=== PATIENT | female | born 1960 | race Caucasian/White ===

== ENCOUNTER 2021-07-02 21:57 | Inpatient (IN) ==
[2021-07-03] MEDS ORDERED: Naloxone 0.4 MG/ML INJ IVP PRN (01:16)
[2021-07-03] MEDS ORDERED: *HR* Promethazine 25 MG/ML VIAL IM PRN (01:16)
[2021-07-03] MEDS ORDERED: *HR* HYDROcodone/Acet 5/325 mg TABLET PO PRN (01:16)
[2021-07-03] MEDS ORDERED: Melatonin 3 MG TABLET PO PRN (01:16)
[2021-07-03] MEDS ORDERED: *HR* Heparin 5,000 UNIT/ML VIAL IVP PRN ×2 (01:18)
[2021-07-03] MEDS ORDERED: Perflutren Lipid Microsphere 1.3 ML in 0.9 % Sodium Chloride 8.7 ML IVP PRN ×2 (01:19→09:25)
[2021-07-03] MEDS ORDERED: D5% in Water 1,000 ML IVC PRN (01:20)
[2021-07-03] MEDS ORDERED: Dextrose Gel 15 GM/37.5 ML TUBE PO PRN ×2 (01:20)
[2021-07-03] MEDS ORDERED: *HR* Dextrose 50 % in Water (Syg) 50 ML SYRINGE IVP PRN (01:20)
[2021-07-03 02:10] LABS: Basophils % 0.4 %; Eosinophils # 0.1 K/mcL (0.0-0.6); Eosinophils % 1.3 %; Hematocrit 48.1 % (35.3-44.9); Hemoglobin 15.5 g/dL (11.5-15.4); Immature Granulocytes % 0.4 % (0-4); Lymphocytes # 2.5 K/mcL (0.6-4.6); Lymphocytes % 27.5 %; Mean Corpuscular HGB Conc 32.2 g/dL (31.6-35.5); Mean Corpuscular Hemoglobin 29.5 pg (28.0-33.3); Mean Corpuscular Volume 91.6 fL (83.0-100.0); Mean Platelet Volume 11.4 fL (9.4-12.4); Monocytes # 0.5 K/mcL (0.0-1.3); Monocytes % 5.5 %; Neutrophils # 5.9 K/mcL (1.6-8.9); Platelet Count 402 K/mcL (140-400); Red Blood Count 5.25 M/mcL (3.82-4.97); Red Cell Distribution Width 13.1 % (11.5-14.5); Segmented Neutrophils % 64.9 %; White Blood Count 9.2 K/mcL (4.3-11.1)
[2021-07-03 02:18] LABS: Heparin anti-factor XA UFH 0.1 IU/mL (0.30-0.70)
[2021-07-03 02:19] LABS: INR 1.2; Prothrombin Time 13.5 Seconds (9.4-12.1)
[2021-07-03] MEDS: Heparin 25,000 UNIT/250 ML 25,000 UNIT/250 ML IV.SOLN IVC SCH (02:19)
[2021-07-03 02:21] LABS: Activated Partial Thrombo Time 33.7 Seconds (26.0-36.0)
[2021-07-03] MEDS: carvediloL 6.25 MG TABLET PO SCH ×2 (02:28→04:55)
[2021-07-03] MEDS: Acetaminophen 325 MG TABLET PO PRN (02:30)
[2021-07-03 02:40] LABS: Alanine Aminotransferase 15 Units/L (7-52); Albumin 3.5 g/dL (3.5-5.7); Albumin/Globulin Ratio 1.1 (1.1-2.2); Alkaline Phosphatase 86 Units/L (34-104); Aspartate Amino Transferase 25 Units/L (13-39); BUN/Creatinine Ratio 28 (6-26); Bilirubin,Total 0.5 mg/dL (0.3-1.0); Blood Urea Nitrogen 18 mg/dL (8-23); Calcium 9.1 mg/dL (8.6-10.3); Carbon Dioxide 29 mEq/L (23-29); Chloride 100 mEq/L (98-107); Chol/HDL Ratio 3.5 (0-4.9); Cholesterol 139 mg/dL (< 200); Globulin 3.3 g/dL (2.4-3.5); Glucose 181 mg/dL (70-105); HDL Cholesterol 40 mg/dL (40-59); LDL Cholesterol,Calculated 81 mg/dL (< 100); Magnesium 1.7 mg/dL (1.6-2.6); Osmolality,Calculated 292 (280-300); Phosphorous 2.6 mg/dL (2.7-4.5); Potassium 3.3 mEq/L (3.5-5.1); Sodium 138 mEq/L (136-145); Total Protein 6.8 g/dL (6.4-8.9); Triglycerides 92 mg/dL (< 150); eGFR For African Americans > 60 (> 60); eGFR For Non-African Americans > 60 (> 60)
[2021-07-03] MEDS: Ipratropium 1 PUFF INHALER IH SCH ×4 (04:21→19:55)
[2021-07-03 05:31] LABS: Troponin I 1.29 ng/mL (< 0.04)
[2021-07-03] MEDS: Budesonide/Formoterol 160/4.5 1 PUFF INH IH SCH ×2 (08:24→19:56)
[2021-07-03 08:40] LABS: Estimated Average Glucose 134 mg/dl; Hemoglobin A1C 6.3 %
[2021-07-03] MEDS: Multivit/Ca/Min/Fe/FA 1 TAB TABLET PO SCH (08:59)
[2021-07-03] MEDS: carvediloL 25 MG TABLET PO SCH ×2 (08:59→17:01)
[2021-07-03] MEDS: lisinopriL 10 MG TABLET PO SCH (08:59)
[2021-07-03] MEDS: Chlorhexidine Rinse 15 ML MOUTHWASH MM SCH ×2 (08:59→19:45)
[2021-07-03] MEDS: predniSONE 20 MG TABLET PO SCH (08:59)
[2021-07-03] MEDS: Aspirin 81 MG TAB.CHEW PO SCH (08:59)
[2021-07-03] MEDS ORDERED: lisinopriL 20 MG TABLET PO SCH (09:00)
[2021-07-03] MEDS ORDERED: ISOVUE-370 200 ML INFUS..BTL ONE (12:38)
[2021-07-03] MEDS ORDERED: *HR* Heparin 10,000 UNIT/10 ML VIAL ONE (12:38)
[2021-07-03] MEDS ORDERED: Heparin 1,000 UNITS/500 mL 500 ML ONE (12:38)
[2021-07-03] MEDS ORDERED: Nitroglycerin 1,000 MCG/5 ML VIAL IV ONE (12:38)
[2021-07-03] MEDS ORDERED: 0.9 % Sodium Chloride 1,000 ML ONE ×2 (12:38→12:48)
[2021-07-03] MEDS ORDERED: *HR* FentaNYL (PF) 100 MCG/2 ML VIAL ONE (12:47)
[2021-07-03] MEDS ORDERED: *HR* Midazolam HCl 2 MG/2 ML VIAL ONE (12:48)
[2021-07-03] MEDS ORDERED: Isovue-370 500 ML BOTTLE IVP ONE (18:50)
[2021-07-04] MEDS: Ipratropium 1 PUFF INHALER IH SCH ×4 (03:50→20:45)
[2021-07-04] MEDS: Heparin 25,000 UNIT/250 ML 25,000 UNIT/250 ML IV.SOLN IVC SCH ×2 (07:08→16:48)
[2021-07-04] MEDS: Chlorhexidine Rinse 15 ML MOUTHWASH MM SCH ×2 (08:15→20:24)
[2021-07-04] MEDS: predniSONE 20 MG TABLET PO SCH (08:16)
[2021-07-04] MEDS: Multivit/Ca/Min/Fe/FA 1 TAB TABLET PO SCH (08:16)
[2021-07-04] MEDS: Aspirin 81 MG TAB.CHEW PO SCH (08:16)
[2021-07-04] MEDS: lisinopriL 10 MG TABLET PO SCH (08:16)
[2021-07-04] MEDS: carvediloL 25 MG TABLET PO SCH ×2 (08:16→16:43)
[2021-07-04] MEDS: Budesonide/Formoterol 160/4.5 1 PUFF INH IH SCH ×2 (09:45→20:45)
[2021-07-04] MEDS: Acetaminophen 325 MG TABLET PO PRN (10:28)
[2021-07-04 15:15] VITALS: TEMP 97.8
[2021-07-04] MEDS: Nicotine 21 MG PATCH.TD24 TD SCH (17:58)
[2021-07-04 18:48] VITALS: O2SAT 94
[2021-07-05] MEDS: Ipratropium 1 PUFF INHALER IH SCH ×2 (03:39→10:20)
[2021-07-05 03:40] LABS: Hematocrit 36.2 % (35.3-44.9); Mean Corpuscular HGB Conc 32.9 g/dL (31.6-35.5); Mean Corpuscular Hemoglobin 30.3 pg (28.0-33.3); Mean Corpuscular Volume 92.1 fL (83.0-100.0); Mean Platelet Volume 11.8 fL (9.4-12.4); Platelet Count 354 K/mcL (140-400); Red Blood Count 3.93 M/mcL (3.82-4.97); Red Cell Distribution Width 13.1 % (11.5-14.5); White Blood Count 9.5 K/mcL (4.3-11.1)
[2021-07-05 03:56] LABS: BUN/Creatinine Ratio 43 (6-26); Blood Urea Nitrogen 25 mg/dL (8-23); Calcium 8.6 mg/dL (8.6-10.3); Carbon Dioxide 24 mEq/L (23-29); Chloride 107 mEq/L (98-107); Glucose 159 mg/dL (70-105); Osmolality,Calculated 294 (280-300); Potassium 3.6 mEq/L (3.5-5.1); Sodium 138 mEq/L (136-145); eGFR For African Americans > 60 (> 60); eGFR For Non-African Americans > 60 (> 60)
[2021-07-05 04:01] LABS: Hemoglobin 11.9 g/dL (11.5-15.4)
[2021-07-05 06:52] VITALS: BP 157/94; PULSE 71
[2021-07-05] MEDS: carvediloL 25 MG TABLET PO SCH (07:39)
[2021-07-05] MEDS: Multivit/Ca/Min/Fe/FA 1 TAB TABLET PO SCH (07:39)
[2021-07-05] MEDS: predniSONE 20 MG TABLET PO SCH (07:39)
[2021-07-05] MEDS: lisinopriL 10 MG TABLET PO SCH (07:39)
[2021-07-05] MEDS: Chlorhexidine Rinse 15 ML MOUTHWASH MM SCH (07:39)
[2021-07-05] MEDS: Nicotine 21 MG PATCH.TD24 TD SCH (07:39)
[2021-07-05] MEDS: Aspirin 81 MG TAB.CHEW PO SCH (07:39)
[2021-07-05] MEDS: Budesonide/Formoterol 160/4.5 1 PUFF INH IH SCH (10:21)
== END 2021-07-05 10:50 | disposition home or self-care (01) | DRG 281 ==
LOC: 3BNU → SUATTDRO 23:55
PROVIDERS: ADMIT Internal Medicine; ATTEND Registered Nurse

== ENCOUNTER 2021-08-13 06:57 | Inpatient (IN) ==
[2021-08-13] MEDS ORDERED: Famotidine 20 MG/2 ML VIAL ONE (07:00)
[2021-08-13] MEDS ORDERED: *HR* Rocuronium Bromide 50 MG/5 ML VIAL ONE ×2 (07:00→10:16)
[2021-08-13] MEDS ORDERED: *HR* Magnesium Sulfate 1 GM/2 ML VIAL ONE (07:00)
[2021-08-13] MEDS ORDERED: Tranexamic Acid 1,000 MG/10 ML VIAL ONE (07:01)
[2021-08-13] MEDS ORDERED: Lidocaine 2% Syringe 100 MG/5 ML ONE (07:01)
[2021-08-13] MEDS ORDERED: *HR* Midazolam HCl 5 MG/5 ML VIAL IVP ONE (07:01)
[2021-08-13] MEDS ORDERED: *HR* Propofol 200 MG/20 ML VIAL IVP ONE (07:01)
[2021-08-13] MEDS ORDERED: *HR* FentaNYL (PF) 1,000 MCG/20 ML VIAL ONE (07:01)
[2021-08-13] MEDS ORDERED: *HR* Vasopressin 20 UNIT/ML VIAL ONE (07:10)
[2021-08-13] MEDS ORDERED: CeFAZolin Syr 2,000MG/20 ML 2,000 MG/20 ML SYRINGE IVPB ONE (07:24)
[2021-08-13] MEDS ORDERED: Chlorhexidine Rinse 15 ML MOUTHWASH MM ONE (07:28)
[2021-08-13] MEDS ORDERED: Ringers Solution, Lactated 1,000 ML IVC SCH (07:30)
[2021-08-13] MEDS ORDERED: Cardioplegic Solution w/ Potassium 5 MEQ TH ONE ×3 (08:00)
[2021-08-13] MEDS ORDERED: Cardioplegic Solution w/ Potassium 20 MEQ TH ONE (08:00)
[2021-08-13] MEDS ORDERED: Heparin 15,000 UNIT in 0.9 % Sodium Chloride 500 ML IV ONE (08:00)
[2021-08-13] MEDS ORDERED: Norepinephrine 4 MG in 0.9 % Sodium Chloride 250 ML IVC PRN (08:00)
[2021-08-13] MEDS: Aspirin 81 MG TAB.CHEW PO SCH (08:09)
[2021-08-13 08:56] LABS: ABG Base Excess 0 mEq/L (-2 to 3); ABG Chloride 105 mEq/L (98-107); ABG Glucose 91 mg/dL (60-95); ABG HCO3 26 mEq/L (21-27); ABG Ionized Calcium 1.19 mmol/L (1.15-1.35); ABG Oxygen Saturation 100 % (95-98); ABG PCO2 45 mmHg (35-45); ABG PH 7.36 pH Units (7.32-7.45); ABG PO2 504 mmHg (85-104); ABG TCO2 27 mEq/L (20-26)
[2021-08-13 10:04] LABS: ABG Base Excess 0 mEq/L (-2 to 3); ABG Chloride 103 mEq/L (98-107); ABG Glucose 130 mg/dL (60-95); ABG HCO3 27 mEq/L (21-27); ABG Ionized Calcium 1.18 mmol/L (1.15-1.35); ABG Oxygen Saturation 100 % (95-98); ABG PCO2 51 mmHg (35-45); ABG PH 7.33 pH Units (7.32-7.45); ABG PO2 287 mmHg (85-104); ABG TCO2 28 mEq/L (20-26)
[2021-08-13 10:34] LABS: ABG Base Excess 3 mEq/L (-2 to 3); ABG Chloride 100 mEq/L (98-107); ABG Glucose 220 mg/dL (60-95); ABG HCO3 25 mEq/L (21-27); ABG Oxygen Saturation 100 % (95-98); ABG PCO2 27 mmHg (35-45); ABG PH 7.58 pH Units (7.32-7.45); ABG PO2 600 mmHg (85-104); ABG TCO2 26 mEq/L (20-26)
[2021-08-13 10:59] LABS: ABG Base Excess 2 mEq/L (-2 to 3); ABG Chloride 99 mEq/L (98-107); ABG Glucose 159 mg/dL (60-95); ABG HCO3 27 mEq/L (21-27); ABG Ionized Calcium 0.98 mmol/L (1.15-1.35); ABG Oxygen Saturation 100 % (95-98); ABG PCO2 39 mmHg (35-45); ABG PH 7.44 pH Units (7.32-7.45); ABG PO2 529 mmHg (85-104); ABG TCO2 28 mEq/L (20-26)
[2021-08-13 11:24] LABS: ABG Base Excess 2 mEq/L (-2 to 3); ABG Chloride 102 mEq/L (98-107); ABG Glucose 101 mg/dL (60-95); ABG HCO3 28 mEq/L (21-27); ABG Ionized Calcium 1.29 mmol/L (1.15-1.35); ABG Oxygen Saturation 100 % (95-98); ABG PCO2 50 mmHg (35-45); ABG PH 7.35 pH Units (7.32-7.45); ABG PO2 581 mmHg (85-104); ABG TCO2 29 mEq/L (20-26)
[2021-08-13] MEDS ORDERED: Protamine Sulfate 50 MG/5 ML VIAL IVP ONE (11:27)
[2021-08-13] MEDS ORDERED: Albumin Human 5% 12.5 GM/250 ML IV.SOLN ONE ×2 (11:41→12:59)
[2021-08-13] MEDS ORDERED: niCARdipine 40 MG/200 ML MLS IVC ONE (11:57)
[2021-08-13 12:01] LABS: ABG Base Excess 0 mEq/L (-2 to 3); ABG Chloride 103 mEq/L (98-107); ABG Glucose 54 mg/dL (60-95); ABG HCO3 26 mEq/L (21-27); ABG Ionized Calcium 1.19 mmol/L (1.15-1.35); ABG Oxygen Saturation 100 % (95-98); ABG PCO2 49 mmHg (35-45); ABG PH 7.34 pH Units (7.32-7.45); ABG PO2 382 mmHg (85-104); ABG TCO2 28 mEq/L (20-26)
[2021-08-13] MEDS ORDERED: *HR* Dextrose 50 % in Water (Syg) 50 ML SYRINGE ONE (12:02)
[2021-08-13] MEDS ORDERED: Lidocaine 2% Syringe 100 MG/5 ML IVP ONE (12:19)
[2021-08-13] MEDS ORDERED: *HR* Phenylephrine 10 MG/ML VIAL IVC ONE (12:19)
[2021-08-13] MEDS ORDERED: Albumin Human 25% 25 GM/100 ML IV.SOLN IVPB ONE (12:19)
[2021-08-13] MEDS ORDERED: *HR* Heparin 10,000 UNIT/10 ML VIAL IR ONE (12:19)
[2021-08-13] MEDS ORDERED: Acetaminophen 325 MG TABLET PO PRN (12:22)
[2021-08-13] MEDS ORDERED: Acetaminophen 650 MG RECTAL SUPP RC PRN (12:22)
[2021-08-13] MEDS ORDERED: Insulin Regular, Human 100 UNIT/ML IV PRN (12:22)
[2021-08-13] MEDS ORDERED: Potassium Chloride 40 MEQ/200 ML BAG IVPB PRN (12:22)
[2021-08-13] MEDS ORDERED: Ondansetron 4 MG/2 ML VIAL IVP PRN (12:22)
[2021-08-13] MEDS ORDERED: Calcium Gluconate 1gm/50mL 1 GM/50 ML BAG IVPB PRN (12:22)
[2021-08-13] MEDS ORDERED: *HR* Dextrose 50 % in Water (Syg) 50 ML SYRINGE IVP PRN (12:22)
[2021-08-13] MEDS ORDERED: Naloxone 0.4 MG/ML INJ IVP PRN (12:22)
[2021-08-13] MEDS: Albumin Human 5% 12.5 GM/250 ML IV.SOLN IVPB PRN ×2 (13:00→15:30)
[2021-08-13 13:16] LABS: ABG Base Excess 0 mEq/L (-2 to 3); ABG HCO3 27 mEq/L (21-27); ABG Oxygen Saturation 100 % (95-98); ABG PCO2 57 mmHg (35-45); ABG PH 7.29 pH Units (7.32-7.45); ABG PO2 261 mmHg (85-104); ABG TCO2 29 mEq/L (20-26); Blood Gas Modality ASSIST CONTROL; Blood Gas VT 450 cc
[2021-08-13 13:22] LABS: Eosinophils % 1.3 %; Red Cell Distribution Width 13.5 % (11.5-14.5)
[2021-08-13 13:24] LABS: Basophils % 0.2 %; Eosinophils # 0.2 K/mcL (0.0-0.6); Hematocrit 37.2 % (35.3-44.9); Hemoglobin 12.3 g/dL (11.5-15.4); INR 1.4; Immature Granulocytes % 0.6 % (0-4); Immature Platelets 11.6 % (1.1-6.1); Lymphocytes # 2.2 K/mcL (0.6-4.6); Lymphocytes % 12.9 %; Mean Corpuscular HGB Conc 33.1 g/dL (31.6-35.5); Mean Corpuscular Hemoglobin 30.9 pg (28.0-33.3); Mean Corpuscular Volume 93.5 fL (83.0-100.0); Mean Platelet Volume 11.9 fL (9.4-12.4); Monocytes % 4.9 %; Neutrophils # 13.8 K/mcL (1.6-8.9); Platelet Count 102 K/mcL (140-400); Red Blood Count 3.98 M/mcL (3.82-4.97); Segmented Neutrophils % 80.1 %; White Blood Count 17.2 K/mcL (4.3-11.1)
[2021-08-13 13:25] LABS: Monocytes # 0.8 K/mcL (0.0-1.3)
[2021-08-13 13:27] LABS: Activated Partial Thrombo Time 33.9 Seconds (26.0-36.0)
[2021-08-13 13:46] LABS: BUN/Creatinine Ratio 26 (6-26); Blood Urea Nitrogen 18 mg/dL (8-23); Calcium 7.8 mg/dL (8.6-10.3); Carbon Dioxide 26 mEq/L (23-29); Chloride 112 mEq/L (98-107); Glucose 95 mg/dL (70-105); Magnesium 3.2 mg/dL (1.6-2.6); Osmolality,Calculated 288 (280-300); Potassium 3.9 mEq/L (3.5-5.1); Sodium 138 mEq/L (136-145); eGFR For African Americans > 60 (> 60); eGFR For Non-African Americans > 60 (> 60)
[2021-08-13] MEDS: *HR* OxyCODONE/APAP 5/325 TABLET PO PRN ×2 (13:46→17:49)
[2021-08-13] MEDS: *HR* FentaNYL (PF) 100 MCG/2 ML VIAL IVP PRN ×3 (13:47→20:10)
[2021-08-13] MEDS: 0.9 % Sodium Chloride w KCl 20 MEQ/1,000 ML MLS IVC SCH (13:49)
[2021-08-13] MEDS: CeFAZolin 2 GM/120 ML BAG IVPB SCH ×2 (16:44→23:49)
[2021-08-13] MEDS: Norepinephrine 4 MG/254 ML IV.SOLN IVC SCH ×3 (16:45→23:50)
[2021-08-13] MEDS: niCARdipine 20 MG/200 ML MLS IVC SCH ×4 (16:45→23:50)
[2021-08-13 16:50] LABS: ABG Base Excess 0 mEq/L (-2 to 3); ABG HCO3 28 mEq/L (21-27); ABG Oxygen Saturation 94 % (95-98); ABG PCO2 58 mmHg (35-45); ABG PH 7.29 pH Units (7.32-7.45); ABG PO2 78 mmHg (85-104); ABG TCO2 30 mEq/L (20-26); Blood Gas Modality ASSIST CONTROL; Blood Gas VT 450 cc
[2021-08-13] MEDS: Ketorolac 30 MG/ML VIAL IVP SCH ×2 (17:03→23:49)
[2021-08-13] MEDS: Metoclopramide 10 MG/2 ML VIAL IVP SCH ×2 (17:04→23:49)
[2021-08-13 18:53] LABS: ABG Base Excess 0 mEq/L (-2 to 3); ABG HCO3 27 mEq/L (21-27); ABG Oxygen Saturation 96 % (95-98); ABG PCO2 55 mmHg (35-45); ABG PO2 90 mmHg (85-104); ABG TCO2 29 mEq/L (20-26)
[2021-08-13] MEDS: Chlorhexidine Rinse 15 ML MOUTHWASH MM SCH (20:10)
[2021-08-14] MEDS: niCARdipine 20 MG/200 ML MLS IVC SCH ×2 (01:29→11:43)
[2021-08-14] MEDS: *HR* OxyCODONE/APAP 5/325 TABLET PO PRN ×3 (02:07→14:18)
[2021-08-14 04:51] LABS: BUN/Creatinine Ratio 35 (6-26); Blood Urea Nitrogen 19 mg/dL (8-23); Calcium 8.2 mg/dL (8.6-10.3); Carbon Dioxide 24 mEq/L (23-29); Chloride 107 mEq/L (98-107); Glucose 111 mg/dL (70-105); Magnesium 2.2 mg/dL (1.6-2.6); Osmolality,Calculated 289 (280-300); Sodium 138 mEq/L (136-145); eGFR For African Americans > 60 (> 60); eGFR For Non-African Americans > 60 (> 60)
[2021-08-14 04:57] LABS: Basophils % 0.1 %; Hematocrit 33.1 % (35.3-44.9); Hemoglobin 10.6 g/dL (11.5-15.4); Immature Granulocytes % 0.3 % (0-4); Immature Platelets 13.3 % (1.1-6.1); Lymphocytes # 2.1 K/mcL (0.6-4.6); Lymphocytes % 13.7 %; Mean Corpuscular Hemoglobin 30.6 pg (28.0-33.3); Mean Corpuscular Volume 95.7 fL (83.0-100.0); Monocytes % 6.8 %; Red Blood Count 3.46 M/mcL (3.82-4.97); Red Cell Distribution Width 13.9 % (11.5-14.5); Segmented Neutrophils % 79.1 %; White Blood Count 15.2 K/mcL (4.3-11.1)
[2021-08-14] MEDS: Ketorolac 30 MG/ML VIAL IVP SCH ×3 (04:57→17:14)
[2021-08-14] MEDS: Metoclopramide 10 MG/2 ML VIAL IVP SCH ×3 (04:57→17:14)
[2021-08-14 05:05] LABS: INR 1.3; Prothrombin Time 14.3 Seconds (9.4-12.1)
[2021-08-14 05:06] LABS: Activated Partial Thrombo Time 27.8 Seconds (26.0-36.0)
[2021-08-14 05:19] LABS: Platelet Count 86 K/mcL (140-400)
[2021-08-14] MEDS: carvediloL 6.25 MG TABLET PO SCH ×4 (07:53→17:16)
[2021-08-14] MEDS ORDERED: Furosemide 20 MG/2 ML VIAL IVP SCH (08:00)
[2021-08-14] MEDS: Chlorhexidine Rinse 15 ML MOUTHWASH MM SCH ×2 (08:32→22:00)
[2021-08-14] MEDS ORDERED: Aspirin Enteric Coated 81 MG Tablet PO SCH (09:00)
[2021-08-14] MEDS ORDERED: hydroCHLOROthiazide 25 MG TABLET PO SCH (09:00)
[2021-08-14] MEDS ORDERED: Pantoprazole 40 MG VIAL IVP SCH (09:00)
[2021-08-14] MEDS: Aspirin 81 MG TAB.CHEW PO SCH (11:42)
[2021-08-14] MEDS: 0.9 % Sodium Chloride w KCl 20 MEQ/1,000 ML MLS IVC SCH (11:44)
[2021-08-14] MEDS ORDERED: Ondansetron 4 MG/2 ML VIAL IVP PRN (12:24)
[2021-08-14] MEDS ORDERED: Insulin Regular, Human 100 UNIT/ML IV PRN (12:24)
[2021-08-14] MEDS ORDERED: *HR* Dextrose 50 % in Water (Syg) 50 ML SYRINGE IVP PRN (12:24)
[2021-08-14] MEDS ORDERED: Naloxone 0.4 MG/ML INJ IVP PRN (12:24)
[2021-08-14] MEDS ORDERED: D5% in Water 1,000 ML IVC PRN (12:24)
[2021-08-14] MEDS ORDERED: Dextrose Gel 15 GM/37.5 ML TUBE PO PRN ×2 (12:24)
[2021-08-14] MEDS ORDERED: SODIUM CHLORIDE IVC SCH (13:00)
[2021-08-14] MEDS ORDERED: INSULIN HUMAN REGULAR IVC SCH (13:00)
[2021-08-14] MEDS: Insulin LISPRO 300 UNITS/3 ML VIAL SUBQ SCH ×3 (13:23→19:45)
[2021-08-14] MEDS: *HR* Heparin 5,000 UNIT/ML VIAL SQ SCH ×2 (13:38→17:12)
[2021-08-14] MEDS: Acetaminophen 325 MG TABLET PO PRN (16:10)
[2021-08-14] MEDS: Furosemide 20 MG/2 ML VIAL IVP SCH (17:13)
[2021-08-15] MEDS: Ketorolac 30 MG/ML VIAL IVP SCH (00:38)
[2021-08-15] MEDS: Metoclopramide 10 MG/2 ML VIAL IVP SCH ×5 (00:39→23:25)
[2021-08-15 05:32] LABS: Basophils % 0.2 %; Eosinophils % 0.1 %; Hematocrit 29.4 % (35.3-44.9); Hemoglobin 9.6 g/dL (11.5-15.4); Immature Granulocytes % 0.5 % (0-4); Lymphocytes # 2.4 K/mcL (0.6-4.6); Mean Corpuscular HGB Conc 32.7 g/dL (31.6-35.5); Mean Corpuscular Hemoglobin 31.3 pg (28.0-33.3); Mean Corpuscular Volume 95.8 fL (83.0-100.0); Monocytes # 0.8 K/mcL (0.0-1.3); Monocytes % 5.1 %; Neutrophils # 12.6 K/mcL (1.6-8.9); Red Blood Count 3.07 M/mcL (3.82-4.97); Segmented Neutrophils % 79.1 %; White Blood Count 15.9 K/mcL (4.3-11.1)
[2021-08-15 05:34] LABS: Platelet Count 81 K/mcL (140-400)
[2021-08-15 05:50] LABS: BUN/Creatinine Ratio 43 (6-26); Blood Urea Nitrogen 27 mg/dL (8-23); Calcium 8.2 mg/dL (8.6-10.3); Carbon Dioxide 29 mEq/L (23-29); Chloride 104 mEq/L (98-107); Glucose 109 mg/dL (70-105); Osmolality,Calculated 290 (280-300); Sodium 137 mEq/L (136-145); eGFR For African Americans > 60 (> 60); eGFR For Non-African Americans > 60 (> 60)
[2021-08-15] MEDS: *HR* OxyCODONE/APAP 5/325 TABLET PO PRN ×3 (07:24→20:34)
[2021-08-15] MEDS: carvediloL 6.25 MG TABLET PO SCH ×2 (08:49→17:43)
[2021-08-15] MEDS: Insulin LISPRO 300 UNITS/3 ML VIAL SUBQ SCH ×4 (08:49→20:47)
[2021-08-15] MEDS: Furosemide 20 MG/2 ML VIAL IVP SCH ×2 (08:51→17:43)
[2021-08-15] MEDS: Aspirin Enteric Coated 81 MG Tablet PO SCH (08:51)
[2021-08-15] MEDS: *HR* Heparin 5,000 UNIT/ML VIAL SQ SCH ×2 (08:52→17:43)
[2021-08-15] MEDS: Pantoprazole 40 MG VIAL IVP SCH (08:52)
[2021-08-15] MEDS: Chlorhexidine Rinse 15 ML MOUTHWASH MM SCH ×2 (08:52→20:34)
[2021-08-15] MEDS: Nicotine 21 MG PATCH.TD24 TD SCH (11:30)
[2021-08-15] MEDS: Acetaminophen 325 MG TABLET PO PRN (13:47)
[2021-08-16] MEDS: *HR* Heparin 5,000 UNIT/ML VIAL SQ SCH ×2 (05:06→17:57)
[2021-08-16] MEDS: Metoclopramide 10 MG/2 ML VIAL IVP SCH ×3 (05:06→17:57)
[2021-08-16] MEDS: Insulin LISPRO 300 UNITS/3 ML VIAL SUBQ SCH ×4 (07:49→21:00)
[2021-08-16] MEDS: carvediloL 6.25 MG TABLET PO SCH ×2 (07:49→17:57)
[2021-08-16] MEDS: Aspirin Enteric Coated 81 MG Tablet PO SCH (07:49)
[2021-08-16] MEDS: Pantoprazole 40 MG VIAL IVP SCH (07:50)
[2021-08-16] MEDS: Furosemide 20 MG/2 ML VIAL IVP SCH ×2 (07:51→17:57)
[2021-08-16] MEDS: Nicotine 21 MG PATCH.TD24 TD SCH (07:51)
[2021-08-16] MEDS: Chlorhexidine Rinse 15 ML MOUTHWASH MM SCH ×2 (07:51→20:05)
[2021-08-16] MEDS: *HR* OxyCODONE/APAP 5/325 TABLET PO PRN (09:55)
[2021-08-16] MEDS: Acetaminophen 325 MG TABLET PO PRN (20:05)
[2021-08-17] MEDS: *HR* Heparin 5,000 UNIT/ML VIAL SQ SCH ×2 (05:03→16:54)
[2021-08-17] MEDS: *HR* OxyCODONE/APAP 5/325 TABLET PO PRN ×2 (08:37→18:30)
[2021-08-17] MEDS: Pantoprazole 40 MG VIAL IVP SCH (08:37)
[2021-08-17] MEDS: Aspirin Enteric Coated 81 MG Tablet PO SCH (08:37)
[2021-08-17] MEDS: Chlorhexidine Rinse 15 ML MOUTHWASH MM SCH ×2 (08:37→21:50)
[2021-08-17] MEDS: Insulin LISPRO 300 UNITS/3 ML VIAL SUBQ SCH ×4 (08:37→21:45)
[2021-08-17] MEDS: Nicotine 21 MG PATCH.TD24 TD SCH (08:38)
[2021-08-17] MEDS: carvediloL 6.25 MG TABLET PO SCH ×2 (08:38→16:54)
[2021-08-18] MEDS: *HR* Heparin 5,000 UNIT/ML VIAL SQ SCH (06:40)
[2021-08-18 07:28] VITALS: BP 134/84; TEMP 98.1
[2021-08-18] MEDS: *HR* OxyCODONE/APAP 5/325 TABLET PO PRN ×2 (07:47→11:44)
[2021-08-18 07:52] VITALS: O2SAT 96
[2021-08-18] MEDS: Aspirin Enteric Coated 81 MG Tablet PO SCH (09:14)
[2021-08-18] MEDS: carvediloL 6.25 MG TABLET PO SCH (09:15)
[2021-08-18] MEDS: Nicotine 21 MG PATCH.TD24 TD SCH (09:16)
[2021-08-18] MEDS: Chlorhexidine Rinse 15 ML MOUTHWASH MM SCH (09:16)
[2021-08-18] MEDS: Insulin LISPRO 300 UNITS/3 ML VIAL SUBQ SCH (09:17)
[2021-08-18] MEDS: Pantoprazole 40 MG VIAL IVP SCH (09:17)
[2021-08-18 10:51] VITALS: PULSE 103
== END 2021-08-18 12:20 | disposition home health service (06) | DRG 236 ==
LOC: SAMDAY 06:57 → ICNU 13:13 → 2NNU 08-15 09:37
PROVIDERS: ADMIT Thoracic Surgery (Cardiothoracic Vascular Surgery); ATTEND Thoracic Surgery (Cardiothoracic Vascular Surgery)